=== PATIENT | female | born 1950 | race Caucasian/White ===

== ENCOUNTER → 2016-10-08 | Outpatient (CLI) | payer OTHER ==
--- NOTE | 2016-10-09 01:17 | ECGEPIP ---
Stationary ECG Study [facility] Test Date: 2016-10-08 Pat Name: DIEGO STONE Department: Room: - Gender: F Cadd Technician: FELICIANO : 1950 Requested By: Kali Boland Order Number: [id number] Reading MD: Isaac Dawson Measurements Intervals [place] Rate: 85 P: 43 [place]: 167 QRS: -14 QRSD: 96 T: 29 QT: 337 QTc: 403 Interpretive Statements SINUS RHYTHM POOR R WAVE PROGRESSION POSSIBLE INFERIOR MYOCARDIAL INFARCTION, OF INDETERMINATE AGE NO PRIOR TRACING Electronically Signed On 10-09-2016 1:17:04 EST by Isaac Dawson
== END ==
LOC: M EKG 16:37
PROVIDERS: ATTEND Ophthalmology
DX: H33.059 Total retinal detachment, unspecified eye (principal)

== ENCOUNTER → 2019-08-02 | Outpatient (CLI) | payer MEDICARE, OTHER ==
--- NOTE | 2019-08-02 10:42 | REP ---
Two-view chest: 08/02/2019. Indication: Cough. Comparison: None. Findings: There is no air space consolidation, pleural effusion or pneumothorax. The cardiomediastinal silhouette is unremarkable. Slightly exaggerated thoracic kyphosis and multilevel degenerative sequelae are present. Impression: No acute cardiopulmonary process. Electronically Signed by Daryl Chirinos DO 08/02/2019 10:33 A
== END ==
LOC: M LRY 10:01
PROVIDERS: ATTEND Physician Assistant
DX: R05 Cough (principal)
CPT/HCPCS: 71046; 87880; G0463

== ENCOUNTER → 2019-08-02 | Outpatient (REF) | payer MEDICARE, OTHER | LOC: M SFHCLERA 10:30 | PROVIDERS: ATTEND Physician Assistant | DX: J02.9 Acute pharyngitis, unspecified (principal) ==